=== PATIENT | female | born 1955 | race Caucasian/White ===

== ENCOUNTER 2019-10-30 12:22 | Emergency (ER) | payer MEDICAID ==
[~2019-10-30] VITALS: Ht 162.6 cm; Wt 77.6 kg
[2019-10-30] MEDS ORDERED: PROPOFOL 1000 MG/ISO-OSM 100 ML IV PRN (14:30)
[2019-10-30 14:55] LABS: BASOPHILS % (AUTO) 0.2 % (0.0-2.0); EOSINOPHILS % (AUTO) 0.1 % (1.0-6.0); HEMATOCRIT 49.3 % (36-46); HEMOGLOBIN 16.2 g/dL (12.0-16.0); LYMPHOCYTES # (AUTO) 0.6 K/uL (1.0-4.8); LYMPHOCYTES % (AUTO) 4.2 % (22.0-44.0); MEAN CORPUSCULAR HEMOGLOBIN 29.8 pg (26.0-34.0); MEAN CORPUSCULAR HGB CONC 32.8 G/dL (31.0-37.0); MEAN CORPUSCULAR VOLUME 91 fL (80-100); MONOCYTES # (AUTO) 1.2 K/uL (0.1-1.0); MONOCYTES % (AUTO) 9.3 % (2.0-9.0); NEUTROPHILS # (AUTO) 11.6 K/uL (1.8-7.7); NEUTROPHILS % (AUTO) 86.2 % (40.0-70.0); PLATELET COUNT (AUTO) 376 K/uL (150-450); RED BLOOD CELL COUNT(AUTO) 5.43 MIL/uL (4.00-5.20); RED CELL DISTRIBUTION WIDTH 13.8 % (11.5-14.5)
[2019-10-30 15:02] VITALS: BP 175/74
[2019-10-30 15:06] LABS: ANION GAP 12 mmol/L (8-16); CALCIUM, TOTAL 10.9 mg/dL (8.8-10.5); CARBON DIOXIDE 30 mmol/L (22-29); CHLORIDE 99 mmol/L (98-107); CREATININE 0.89 mg/dL (0.60-1.30); GLOMERULAR FILTR. RATE CALC > 60 mL/min (>60); GLUCOSE,RANDOM 162 mg/dL (70-110); SODIUM SERUM 141 mmol/L (136-145); UREA NITROGEN, BLOOD 36 mg/dL (7-18)
[2019-10-30 15:10] LABS: PROTHROMBIN TIME 10.7 SEC (9.4-11.6)
[2019-10-30 15:20] LABS: LACTIC ACID 2.1 mmol/L (0.4-2.0)
[2019-10-30 15:26] LABS: SALICYLATE 2.6 mg/dL (2.8-20.0)
[2019-10-30 15:29] LABS: ALANINE AMINOTRANSFERASE 40 U/L (12-78); ALBUMIN 3.8 g/dL (3.4-5.0); ALKALINE PHOSPHATASE 139 U/L (46-116); ASPARTATE AMINOTRANSFERASE 36 U/L (15-37); BILIRUBIN,TOTAL 0.6 mg/dL (0.1-1.0); CREATINE KINASE, TOTAL ONLY 325 U/L (26-192); LIPASE 76 U/L (73-393); TOTAL PROTEIN, SERUM 9.1 g/dL (6.4-8.2)
[2019-10-30 15:33] LABS: ACETAMINOPHEN < 2 mcg/mL (10-30)
[2019-10-30] MEDS ORDERED: POTASSIUM CHL 10 MEQ/WATER 50 ML IV SCH (15:45)
[2019-10-30 15:48] LABS: AMMONIA < 10 umol/L (11-32); TROPONIN I < 0.02 ng/mL (0.00-0.05)
[2019-10-30 15:51] LABS: GLUCOMETER DEV NAME(LOC) PVLAB.13
[2019-10-30 16:20] LABS: FERRITIN 714 ng/mL (8-252)
[2019-10-30 16:33] LABS: C-REACTIVE PROTEIN QUANT 25.57 mg/dL (0.00-0.30)
[2019-10-30 16:35] LABS: D-DIMER 3.68 mg/L FEU (0.00-0.50)
[2019-10-31] MEDS ORDERED: LIDOCAINE 2% 5 ML JELLY ONE (14:58)
[2019-10-31] MEDS ORDERED: ETOMIDATE 2 MG/ML 10 ML VIAL ONE (14:58)
== END 2019-10-30 15:55 | disposition short-term general hospital (02) ==
LOC: EMS 12:24
DX: T40.2X1A Poisoning by other opioids, accidental (unintentional), initial encounter (principal); T39.311A Poisoning by propionic acid derivatives, accidental (unintentional), initial encounter; T39.1X1A Poisoning by 4-Aminophenol derivatives, accidental (unintentional), initial encounter; T42.8X1A Poisoning by antiparkinsonism drugs and other central muscle-tone depressants, accidental (unintentional), initial encounter; S09.90XA Unspecified injury of head, initial encounter; R41.82 Altered mental status, unspecified; E87.6 Hypokalemia; E87.2 Acidosis; R74.0 Nonspecific elevation of levels of transaminase and lactic acid dehydrogenase [LDH]; Z20.828 Contact with and (suspected) exposure to other viral communicable diseases; W18.39XA Other fall on same level, initial encounter; Y93.89 Activity, other specified; Y92.89 Other specified places as the place of occurrence of the external cause; Y99.8 Other external cause status
CPT/HCPCS: 31500; 36415; 71045; 80053; 82140; 82550; 82728; 83605; 83690; 83735; 84484; 85025; 85379; 85384; 85610; 86140; 87040; 87077; 87186; 87205; 87635; 93005; 99291; G0480; J2704; 51702; 94002; G0481; J3490